=== PATIENT | female | born 1950 | race Caucasian/White ===

== ENCOUNTER 2020-07-02 17:17 | Inpatient (IN) | payer MEDICARE ==
[~2020-07-02] VITALS: Ht 165.1 cm; Wt 77.6 kg
[2020-07-02 17:48] LABS: BASOPHILS % (AUTO) 0.4 % (0.0-5.0); EOSINOPHILS % (AUTO) 0.1 % (0.0-8.0); HEMATOCRIT 49.1 % (42-54); LYMPHOCYTES % (AUTO) 9.4 % (21.0-51.0); MEAN CORPUSCULAR HEMOGLOBIN 29.2 pg (27.0-33.0); MEAN CORPUSCULAR HGB CONC 33.6 g/dL (32.0-36.0); MEAN CORPUSCULAR VOLUME 86.9 fL (79-99); MONOCYTES % (AUTO) 3.6 % (3.0-13.0); NEUTROPHILS % (AUTO) 85.8 % (40.0-77.0); PLATELET COUNT (AUTO) 207 K/uL (130-400); RED BLOOD CELL COUNT(AUTO) 5.65 MIL/uL (4.50-6.20); RED CELL DISTRIBUTION WIDTH 18.8 % (11.0-15.5); WHITE BLOOD COUNT (AUTO) 8.5 K/uL (4.8-10.8)
[2020-07-02] MEDS ORDERED: ALBUTEROL INHALER 90MCG/INH IH ONE (17:50)
[2020-07-02] MEDS ORDERED: AZITHROMYCIN 500MG+NS 250ML 250 ML IV ONE (17:51)
[2020-07-02] MEDS ORDERED: CEFTRIAXONE SODIUM 1 GM ONE (17:51)
[2020-07-02] MEDS ORDERED: DEXAMETHASONE SOD PHOSPHATE 10MG/ML 1ML VIAL ONE (17:51)
[2020-07-02] MEDS ORDERED: ERGOCALCIFEROL (VITAMIN D2) 50,000 UNIT CAPSULE PO ONE (18:00)
[2020-07-02] MEDS ORDERED: DOXYCYCLINE 100MG+NS 250ML IV SCH (18:00)
[2020-07-02 18:02] LABS: CREATININE 1.5 mg/dL (0.5-1.5); POTASSIUM 3.5 mmol/L (3.5-5.1)
[2020-07-02 18:07] LABS: ALBUMIN 3.1 g/dL (3.5-5.0); BILIRUBIN,TOTAL 0.8 mg/dL (0.2-1.0); TOTAL PROTEIN, SERUM 7.2 g/dL (6.0-8.3)
[2020-07-02 18:25] LABS: ABG BASE EXCESS -3.8 mmol/L (-2.0-3.0); ABG HCO3 18.3 mmol/L (21.0-28.0); ABG PCO2 26 mmHg (32-45)
[2020-07-02] MEDS ORDERED: DILTIAZEM HCL 5 MG/ML 5 ML VIAL IVP SCH (18:30)
[2020-07-02] MEDS ORDERED: DEXTROSE 50%-WATER 50 ML DISP.SYRIN IV PRN (19:00)
[2020-07-02] MEDS ORDERED: GLUCAGON 1MG KIT 1 MG ML IM PRN (19:00)
[2020-07-02] MEDS ORDERED: DILTIAZEM HCL 5 MG/ML 5 ML VIAL IVP ONE (22:20)
[2020-07-02] MEDS ORDERED: DOXYCYCLINE 100MG+NS 250ML 250 ML IV ONE (23:12)
[2020-07-03] MEDS ORDERED: INSULIN HUMULIN R 100 UNIT/ML 3ML ONE (00:09)
[2020-07-03 04:46] LABS: BASOPHILS % (AUTO) 0.2 % (0.0-5.0); MEAN CORPUSCULAR HEMOGLOBIN 28.9 pg (27.0-33.0); MEAN CORPUSCULAR VOLUME 87.7 fL (79-99); MONOCYTES % (AUTO) 2.3 % (3.0-13.0); NEUTROPHILS % (AUTO) 84.4 % (40.0-77.0); PLATELET COUNT (AUTO) 181 K/uL (130-400); RED BLOOD CELL COUNT(AUTO) 5.36 MIL/uL (4.00-5.50); RED CELL DISTRIBUTION WIDTH 18.4 % (11.0-15.5); WHITE BLOOD COUNT (AUTO) 4.8 K/uL (4.8-10.8)
[2020-07-03 05:12] LABS: ALBUMIN 2.6 g/dL (3.5-5.0); BILIRUBIN,TOTAL 0.4 mg/dL (0.2-1.0); CREATININE 1.4 mg/dL (0.5-1.5); POTASSIUM 4.3 mmol/L (3.5-5.1); TOTAL PROTEIN, SERUM 6.8 g/dL (6.0-8.3)
[2020-07-03 05:26] LABS: CRP QUANTITATIVE 214.4 mg/L (0.00-9.0)
[2020-07-03] MEDS: IPRATROPIUM 0.5 MG/2.5 ML INH IH SCH ×4 (06:00→18:00)
[2020-07-03] MEDS ORDERED: ASCORBIC ACID 500 MG TAB ONE (08:06)
[2020-07-03] MEDS ORDERED: ENOXAPARIN SODIUM 40 MG/0.4 ML SYRINGE SQ ONE (08:07)
[2020-07-03] MEDS ORDERED: ACETYLCYSTEINE 600 MG CAPSULE ONE (08:07)
[2020-07-03] MEDS ORDERED: ZINC SULFATE 220 CAPSULE ONE (08:07)
[2020-07-03] MEDS ORDERED: DOXYCYCLINE 100MG+NS 250ML 250 ML IV ONE (08:07)
[2020-07-03] MEDS: ZINC SULFATE 220 CAPSULE PO SCH (09:00)
[2020-07-03] MEDS: ASCORBIC ACID 500 MG TAB PO SCH (09:00)
[2020-07-03] MEDS ORDERED: ENOXAPARIN SODIUM 40 MG/0.4 ML SYRINGE SQ SCH (09:00)
[2020-07-03] MEDS ORDERED: PHARMACY COMMUNICATION MISC SCH (10:30)
[2020-07-03] MEDS ORDERED: ANAS5POW2 MC (11:47)
[2020-07-03] MEDS ORDERED: FENO145T26 PO (11:47)
[2020-07-03] MEDS ORDERED: IPRA0.2S54 IH (11:47)
[2020-07-03] MEDS ORDERED: MAGN400C PO (11:47)
[2020-07-03] MEDS ORDERED: CLOP75TA32 PO (11:47)
[2020-07-03] MEDS ORDERED: CALC0.253 PO (11:47)
[2020-07-03] MEDS ORDERED: LORA2ORA5 PO (11:47)
[2020-07-03] MEDS ORDERED: FLUT200B IH (11:47)
[2020-07-03] MEDS ORDERED: FOLI1TAB85 PO (11:47)
[2020-07-03] MEDS ORDERED: OMEG100014 PO (11:47)
[2020-07-03] MEDS ORDERED: ASPI-1197 PO (11:47)
[2020-07-03] MEDS ORDERED: FERR159T2 PO (11:47)
[2020-07-03] MEDS ORDERED: PANT40GR PO (11:47)
[2020-07-03] MEDS ORDERED: DILT240T13 PO (11:47)
[2020-07-03] MEDS ORDERED: CETI10CA5 PO (11:47)
[2020-07-03] MEDS ORDERED: FURO-152 PO (11:47)
[2020-07-03] MEDS ORDERED: CA C1TAB74 PO (11:47)
[2020-07-03] MEDS ORDERED: ATOR40TA69 PO (11:47)
[2020-07-03] MEDS ORDERED: ALBU10PO MC (11:47)
[2020-07-03] MEDS ORDERED: METO-391 PO (11:47)
[2020-07-03] MEDS ORDERED: METO-409 PO (11:47)
[2020-07-03] MEDS ORDERED: UBID200C18 PO (11:47)
[2020-07-03] MEDS ORDERED: AMIT25TA9 PO (11:47)
[2020-07-03] MEDS ORDERED: HYDR473S50 PO (11:47)
[2020-07-03] MEDS ORDERED: DILTIAZEM HCL 125 MG/25 ML 125 MG in SODIUM CHLORIDE 0.9% 100 ML IV PRN (12:00)
[2020-07-03] MEDS ORDERED: DILTIAZEM HCL 60 MG TABLET ONE ×2 (12:17→20:00)
[2020-07-03] MEDS ORDERED: METOPROLOL TARTRATE 25 MG TAB ONE ×2 (12:18→20:01)
[2020-07-03] MEDS ORDERED: COMPOUND IV REFRIGERATED 1 EACH IVSOLN MISC PRN (16:00)
[2020-07-03] MEDS ORDERED: REMDESIVIR (EUA) 520 200 MG in SODIUM CHLORIDE 0.9% 250 ML IV ONE (16:00)
[2020-07-03] MEDS: CEFTRIAXONE SODIUM 1 GM IVP SCH (18:00)
[2020-07-03] MEDS: DEXAMETHASONE SOD PHOSPHATE 4 MG/ML 1ML VIAL IVP SCH (18:00)
[2020-07-03] MEDS: DILTIAZEM HCL 60 MG TABLET PO SCH (20:00)
[2020-07-03] MEDS: ACETYLCYSTEINE 600 MG CAPSULE PO SCH (21:00)
[2020-07-03] MEDS: ENOXAPARIN SODIUM 30 MG/0.3 ML SQ SCH (21:00)
[2020-07-03] MEDS: DOXYCYCLINE 100MG+NS 250ML 250 ML IV SCH (21:00)
[2020-07-03] MEDS: METOPROLOL TARTRATE 25 MG TAB PO SCH (21:00)
[2020-07-03] MEDS: INSULIN HUMULIN R 100 UNIT/ML 3ML SQ SCH (21:00)
[2020-07-04 02:03] VITALS: BP 144/89
[2020-07-04] MEDS ORDERED: ACETAMINOPHEN 325 MG TAB PO ONE (02:30)
[2020-07-04] MEDS: DILTIAZEM HCL 60 MG TABLET PO SCH ×3 (03:09→20:27)
[2020-07-04 03:37] VITALS: BP 123/75
[2020-07-04] MEDS: CEFTRIAXONE SODIUM 1 GM IVP SCH ×2 (05:50→18:25)
[2020-07-04] MEDS: PHARMACY COMMUNICATION MISC SCH (06:00)
[2020-07-04] MEDS: IPRATROPIUM 0.5 MG/2.5 ML INH IH SCH ×4 (06:00→18:00)
[2020-07-04 06:17] LABS: BASOPHILS % (AUTO) 0.1 % (0.0-5.0); HEMATOCRIT 43.8 % (36-48); MEAN CORPUSCULAR HEMOGLOBIN 29.1 pg (27.0-33.0); MEAN CORPUSCULAR HGB CONC 33.3 g/dL (32.0-36.0); MEAN CORPUSCULAR VOLUME 87.3 fL (79-99); MONOCYTES % (AUTO) 2.9 % (3.0-13.0); PLATELET COUNT (AUTO) 226 K/uL (130-400); RED BLOOD CELL COUNT(AUTO) 5.02 MIL/uL (4.00-5.50); RED CELL DISTRIBUTION WIDTH 18.2 % (11.0-15.5)
[2020-07-04 06:30] LABS: ALBUMIN 2.7 g/dL (3.5-5.0); BILIRUBIN,TOTAL 0.4 mg/dL (0.2-1.0); CREATININE 1.2 mg/dL (0.5-1.5); CRP QUANTITATIVE 135.6 mg/L (0.00-9.0); POTASSIUM 4.3 mmol/L (3.5-5.1)
[2020-07-04] MEDS: INSULIN HUMULIN R 100 UNIT/ML 3ML SQ SCH ×3 (06:55→21:50)
[2020-07-04] MEDS: ASCORBIC ACID 500 MG TAB PO SCH (08:48)
[2020-07-04] MEDS: ACETYLCYSTEINE 600 MG CAPSULE PO SCH ×2 (08:48→20:28)
[2020-07-04] MEDS: METOPROLOL TARTRATE 25 MG TAB PO SCH ×2 (08:48→20:27)
[2020-07-04] MEDS: ZINC SULFATE 220 CAPSULE PO SCH (08:48)
[2020-07-04] MEDS: DOXYCYCLINE 100MG+NS 250ML 250 ML IV SCH ×2 (08:48→20:29)
[2020-07-04] MEDS: ENOXAPARIN SODIUM 30 MG/0.3 ML SQ SCH (08:49)
[2020-07-04 08:53] VITALS: BP 166/99
[2020-07-04 11:57] VITALS: BP 149/84
[2020-07-04 16:00] VITALS: BP 121/88
[2020-07-04] MEDS: REMDESIVIR (EUA) 520 100 MG in SODIUM CHLORIDE 0.9% 250 ML IV SCH (16:40)
[2020-07-04] MEDS: DEXAMETHASONE SOD PHOSPHATE 4 MG/ML 1ML VIAL IVP SCH (18:25)
[2020-07-04] MEDS ORDERED: HYDROCODONE/ACETAMINOPHEN 5/325 MG TAB PO PRN (18:45)
[2020-07-04 20:00] VITALS: BP 136/97
[2020-07-04] MEDS: ENOXAPARIN SODIUM 60 MG/0.6 ML SQ SCH (20:29)
[2020-07-04] MEDS: INSULIN GLARGINE 100 UNITS/ML 10 ML VIAL SQ SCH (21:51)
[2020-07-05] VITALS (7 sets, daily range): BP systolic 134–159; BP diastolic 60–99
[2020-07-05 04:01] LABS: ABG BASE EXCESS -2.4 mmol/L (-2.0-3.0); ABG HCO3 22.5 mmol/L (21.0-28.0); ABG OXYGEN SATURATION 94.2 % (95.0-99.0); ABG PCO2 40 mmHg (32-45)
[2020-07-05] MEDS: DILTIAZEM HCL 60 MG TABLET PO SCH ×3 (04:29→20:37)
[2020-07-05 05:56] LABS: BASOPHILS % (AUTO) 0.2 % (0.0-5.0); HEMATOCRIT 44.1 % (36-48); LYMPHOCYTES % (AUTO) 6.1 % (21.0-51.0); MEAN CORPUSCULAR HEMOGLOBIN 28.8 pg (27.0-33.0); MEAN CORPUSCULAR HGB CONC 32.4 g/dL (32.0-36.0); MEAN CORPUSCULAR VOLUME 88.7 fL (79-99); MONOCYTES % (AUTO) 2.1 % (3.0-13.0); NEUTROPHILS % (AUTO) 89.9 % (40.0-77.0); PLATELET COUNT (AUTO) 203 K/uL (130-400); RED BLOOD CELL COUNT(AUTO) 4.97 MIL/uL (4.00-5.50); RED CELL DISTRIBUTION WIDTH 18.6 % (11.0-15.5); WHITE BLOOD COUNT (AUTO) 10.3 K/uL (4.8-10.8)
[2020-07-05] MEDS: PHARMACY COMMUNICATION MISC SCH (06:00)
[2020-07-05] MEDS: IPRATROPIUM 0.5 MG/2.5 ML INH IH SCH ×4 (06:00→18:18)
[2020-07-05 06:12] LABS: HEMOGLOBIN A1C 7.1 % (4.0-6.0)
[2020-07-05] MEDS: CEFTRIAXONE SODIUM 1 GM IVP SCH ×2 (06:12→18:20)
[2020-07-05 06:31] LABS: ALBUMIN 2.6 g/dL (3.5-5.0); BILIRUBIN,TOTAL 0.4 mg/dL (0.2-1.0); CRP QUANTITATIVE 156.2 mg/L (0.00-9.0); POTASSIUM 4.4 mmol/L (3.5-5.1); TOTAL PROTEIN, SERUM 6.8 g/dL (6.0-8.3)
[2020-07-05] MEDS: INSULIN HUMULIN R 100 UNIT/ML 3ML SQ SCH ×7 (07:30→20:13)
[2020-07-05] MEDS: DEXAMETHASONE SOD PHOSPHATE 4 MG/ML 1ML VIAL IVP SCH ×3 (08:58→20:38)
[2020-07-05] MEDS: METOPROLOL TARTRATE 25 MG TAB PO SCH ×2 (08:58→20:37)
[2020-07-05] MEDS: ENOXAPARIN SODIUM 60 MG/0.6 ML SQ SCH ×2 (08:58→20:39)
[2020-07-05] MEDS: ZINC SULFATE 220 CAPSULE PO SCH (08:58)
[2020-07-05] MEDS: DOXYCYCLINE 100MG+NS 250ML 250 ML IV SCH ×2 (08:58→20:38)
[2020-07-05] MEDS: ASCORBIC ACID 500 MG TAB PO SCH (08:58)
[2020-07-05] MEDS: ACETYLCYSTEINE 600 MG CAPSULE PO SCH ×2 (08:58→20:37)
[2020-07-05] MEDS: REMDESIVIR (EUA) 520 100 MG in SODIUM CHLORIDE 0.9% 250 ML IV SCH (18:21)
[2020-07-05] MEDS: INSULIN GLARGINE 100 UNITS/ML 10 ML VIAL SQ SCH (20:53)
[2020-07-06 03:41] VITALS: BP 146/73
[2020-07-06] MEDS: DILTIAZEM HCL 60 MG TABLET PO SCH ×3 (04:06→20:50)
[2020-07-06 04:52] LABS: BASOPHILS % (AUTO) 0.3 % (0.0-5.0); HEMATOCRIT 43.9 % (36-48); LYMPHOCYTES % (AUTO) 5.9 % (21.0-51.0); MEAN CORPUSCULAR HEMOGLOBIN 29.1 pg (27.0-33.0); MEAN CORPUSCULAR HGB CONC 32.8 g/dL (32.0-36.0); MEAN CORPUSCULAR VOLUME 88.9 fL (79-99); NEUTROPHILS % (AUTO) 89.5 % (40.0-77.0); PLATELET COUNT (AUTO) 215 K/uL (130-400); RED BLOOD CELL COUNT(AUTO) 4.94 MIL/uL (4.00-5.50); RED CELL DISTRIBUTION WIDTH 18.3 % (11.0-15.5); WHITE BLOOD COUNT (AUTO) 12.8 K/uL (4.8-10.8)
[2020-07-06 05:11] LABS: ALBUMIN 2.5 g/dL (3.5-5.0); BILIRUBIN,TOTAL 0.4 mg/dL (0.2-1.0); CRP QUANTITATIVE 91.1 mg/L (0.00-9.0); POTASSIUM 4.3 mmol/L (3.5-5.1); TOTAL PROTEIN, SERUM 6.6 g/dL (6.0-8.3)
[2020-07-06] MEDS: CEFTRIAXONE SODIUM 1 GM IVP SCH ×2 (05:29→17:18)
[2020-07-06] MEDS: PHARMACY COMMUNICATION MISC SCH (05:30)
[2020-07-06] MEDS: IPRATROPIUM 0.5 MG/2.5 ML INH IH SCH ×4 (06:00→18:00)
[2020-07-06] MEDS: INSULIN HUMULIN R 100 UNIT/ML 3ML SQ SCH ×7 (06:40→20:25)
[2020-07-06 07:53] VITALS: BP 130/89
[2020-07-06] MEDS: ASCORBIC ACID 500 MG TAB PO SCH (08:28)
[2020-07-06] MEDS: ZINC SULFATE 220 CAPSULE PO SCH (08:28)
[2020-07-06] MEDS: ACETYLCYSTEINE 600 MG CAPSULE PO SCH ×2 (08:28→20:50)
[2020-07-06] MEDS: METOPROLOL TARTRATE 25 MG TAB PO SCH ×2 (08:28→23:51)
[2020-07-06] MEDS: DEXAMETHASONE SOD PHOSPHATE 4 MG/ML 1ML VIAL IVP SCH ×2 (08:29→20:50)
[2020-07-06] MEDS: DOXYCYCLINE 100MG+NS 250ML 250 ML IV SCH ×2 (08:29→20:55)
[2020-07-06] MEDS: ENOXAPARIN SODIUM 60 MG/0.6 ML SQ SCH ×2 (08:29→20:51)
[2020-07-06 11:19] VITALS: BP 159/84
[2020-07-06] MEDS: HYDROCODONE/ACETAMINOPHEN 5/325 MG TAB PO PRN (12:11)
[2020-07-06 15:40] VITALS: BP_SYST 110; BP_SYST 121; BP_DIAS 71; BP_DIAS 74
[2020-07-06] MEDS: REMDESIVIR (EUA) 520 100 MG in SODIUM CHLORIDE 0.9% 250 ML IV SCH (15:47)
[2020-07-06] MEDS ORDERED: FUROSEMIDE 10 MG/ML 2ML VIAL IV SCH (17:55)
[2020-07-06 19:00] VITALS: BP 138/94
[2020-07-06] MEDS: INSULIN GLARGINE 100 UNITS/ML 10 ML VIAL SQ SCH (20:53)
[2020-07-06 23:00] VITALS: BP 152/86
[2020-07-07 03:00] VITALS: BP 124/81
[2020-07-07 04:12] LABS: ABG BASE EXCESS -0.4 mmol/L (-2.0-3.0); ABG HCO3 24.9 mmol/L (21.0-28.0); ABG OXYGEN SATURATION 92.1 % (95.0-99.0); ABG PCO2 43 mmHg (32-45)
[2020-07-07] MEDS: DILTIAZEM HCL 60 MG TABLET PO SCH ×2 (04:15→12:30)
[2020-07-07 04:51] LABS: BASOPHILS % (AUTO) 0.2 % (0.0-5.0); EOSINOPHILS % (AUTO) 0.1 % (0.0-8.0); HEMATOCRIT 44.9 % (36-48); LYMPHOCYTES % (AUTO) 2.9 % (21.0-51.0); MEAN CORPUSCULAR HEMOGLOBIN 28.7 pg (27.0-33.0); MEAN CORPUSCULAR HGB CONC 32.7 g/dL (32.0-36.0); MEAN CORPUSCULAR VOLUME 87.5 fL (79-99); MONOCYTES % (AUTO) 2.1 % (3.0-13.0); NEUTROPHILS % (AUTO) 93.7 % (40.0-77.0); PLATELET COUNT (AUTO) 250 K/uL (130-400); RED BLOOD CELL COUNT(AUTO) 5.13 MIL/uL (4.00-5.50); RED CELL DISTRIBUTION WIDTH 17.9 % (11.0-15.5); WHITE BLOOD COUNT (AUTO) 16.6 K/uL (4.8-10.8)
[2020-07-07 05:05] LABS: ALBUMIN 2.4 g/dL (3.5-5.0); BILIRUBIN,TOTAL 0.5 mg/dL (0.2-1.0); CRP QUANTITATIVE 67.4 mg/L (0.00-9.0); POTASSIUM 3.9 mmol/L (3.5-5.1); TOTAL PROTEIN, SERUM 6.6 g/dL (6.0-8.3)
[2020-07-07] MEDS: PHARMACY COMMUNICATION MISC SCH (06:00)
[2020-07-07] MEDS: IPRATROPIUM 0.5 MG/2.5 ML INH IH SCH ×4 (06:00→18:00)
[2020-07-07] MEDS: CEFTRIAXONE SODIUM 1 GM IVP SCH ×2 (06:05→17:45)
[2020-07-07] MEDS: INSULIN HUMULIN R 100 UNIT/ML 3ML SQ SCH ×7 (06:06→21:00)
[2020-07-07 06:09] LABS: B-TYPE NATRIURETIC PEPTIDE 225 pg/mL (0-100)
[2020-07-07 08:00] VITALS: BP 110/89
[2020-07-07] MEDS: ACETYLCYSTEINE 600 MG CAPSULE PO SCH (09:16)
[2020-07-07] MEDS: ASCORBIC ACID 500 MG TAB PO SCH (09:16)
[2020-07-07] MEDS: DEXAMETHASONE SOD PHOSPHATE 4 MG/ML 1ML VIAL IVP SCH (09:17)
[2020-07-07] MEDS: ENOXAPARIN SODIUM 60 MG/0.6 ML SQ SCH (09:17)
[2020-07-07] MEDS: DOXYCYCLINE 100MG+NS 250ML 250 ML IV SCH (09:18)
[2020-07-07] MEDS: HYDROCODONE/ACETAMINOPHEN 5/325 MG TAB PO PRN (09:21)
[2020-07-07] MEDS: ZINC SULFATE 220 CAPSULE PO SCH (09:21)
[2020-07-07] MEDS: FAMOTIDINE/PF 20 MG/2 ML VIAL IV SCH (09:24)
[2020-07-07] MEDS: FUROSEMIDE 10 MG/ML 2ML VIAL IV SCH (09:27)
[2020-07-07] MEDS: METOPROLOL TARTRATE 25 MG TAB PO SCH ×2 (09:27→14:39)
[2020-07-07 12:00] VITALS: BP 139/85
[2020-07-07] MEDS: METOPROLOL TARTRATE 1 MG/ML 5ML VIAL IV PRN (13:25)
[2020-07-07] MEDS: REMDESIVIR (EUA) 520 100 MG in SODIUM CHLORIDE 0.9% 250 ML IV SCH (15:28)
[2020-07-07 16:00] VITALS: BP 144/86
[2020-07-07] MEDS: LUBIPROSTONE 24 MCG CAP PO SCH (17:45)
[2020-07-07 20:04] VITALS: BP 150/84
[2020-07-08] VITALS (7 sets, daily range): BP systolic 117–163; BP diastolic 67–86
[2020-07-08] MEDS: METOPROLOL TARTRATE 25 MG TAB PO SCH ×3 (00:20→14:45)
[2020-07-08] MEDS: ACETYLCYSTEINE 600 MG CAPSULE PO SCH ×3 (00:20→21:09)
[2020-07-08] MEDS: INSULIN GLARGINE 100 UNITS/ML 10 ML VIAL SQ SCH ×2 (00:22→21:19)
[2020-07-08] MEDS: ENOXAPARIN SODIUM 60 MG/0.6 ML SQ SCH ×2 (00:23→09:29)
[2020-07-08] MEDS: DILTIAZEM HCL 60 MG TABLET PO SCH ×4 (00:26→21:11)
[2020-07-08] MEDS: FAMOTIDINE/PF 20 MG/2 ML VIAL IV SCH ×3 (01:35→21:09)
[2020-07-08] MEDS: DEXAMETHASONE SOD PHOSPHATE 4 MG/ML 1ML VIAL IVP SCH ×3 (01:36→21:09)
[2020-07-08] MEDS: DOXYCYCLINE 100MG+NS 250ML 250 ML IV SCH ×3 (01:37→21:08)
[2020-07-08 05:44] LABS: BASOPHILS % (AUTO) 0.3 % (0.0-5.0); HEMATOCRIT 44.8 % (36-48); LYMPHOCYTES % (AUTO) 2.2 % (21.0-51.0); MEAN CORPUSCULAR HEMOGLOBIN 29.3 pg (27.0-33.0); MEAN CORPUSCULAR HGB CONC 33.7 g/dL (32.0-36.0); MEAN CORPUSCULAR VOLUME 86.8 fL (79-99); MONOCYTES % (AUTO) 1.8 % (3.0-13.0); NEUTROPHILS % (AUTO) 94.4 % (40.0-77.0); PLATELET COUNT (AUTO) 257 K/uL (130-400); RED BLOOD CELL COUNT(AUTO) 5.16 MIL/uL (4.00-5.50); RED CELL DISTRIBUTION WIDTH 17.6 % (11.0-15.5); WHITE BLOOD COUNT (AUTO) 18.7 K/uL (4.8-10.8)
[2020-07-08 06:32] LABS: ALBUMIN 2.5 g/dL (3.5-5.0); BILIRUBIN,TOTAL 0.6 mg/dL (0.2-1.0); CREATININE 0.8 mg/dL (0.5-1.5); CRP QUANTITATIVE 61.3 mg/L (0.00-9.0); POTASSIUM 3.8 mmol/L (3.5-5.1); TOTAL PROTEIN, SERUM 6.7 g/dL (6.0-8.3)
[2020-07-08] MEDS: CEFTRIAXONE SODIUM 1 GM IVP SCH ×2 (06:53→17:17)
[2020-07-08] MEDS: INSULIN HUMULIN R 100 UNIT/ML 3ML SQ SCH ×7 (07:30→21:00)
[2020-07-08] MEDS: FUROSEMIDE 10 MG/ML 2ML VIAL IV SCH (08:00)
[2020-07-08] MEDS: LUBIPROSTONE 24 MCG CAP PO SCH ×2 (08:00→17:00)
[2020-07-08] MEDS: ASCORBIC ACID 500 MG TAB PO SCH (09:29)
[2020-07-08] MEDS: ZINC SULFATE 220 CAPSULE PO SCH (09:29)
[2020-07-08] MEDS: IPRATROPIUM 0.5 MG/2.5 ML INH IH SCH ×2 (12:00→18:00)
[2020-07-08] MEDS: METOPROLOL TARTRATE 1 MG/ML 5ML VIAL IV PRN (12:59)
[2020-07-08] MEDS: METOPROLOL SUCCINATE 50 MG TAB.SR.24H PO SCH (21:09)
[2020-07-08] MEDS: ENOXAPARIN SODIUM 40 MG/0.4 ML SYRINGE SQ SCH (21:10)
[2020-07-09 03:09] VITALS: BP 146/96
[2020-07-09] MEDS: DILTIAZEM HCL 60 MG TABLET PO SCH ×3 (04:31→23:15)
[2020-07-09] MEDS: IPRATROPIUM 0.5 MG/2.5 ML INH IH SCH ×4 (06:00→18:00)
[2020-07-09] MEDS: INSULIN HUMULIN R 100 UNIT/ML 3ML SQ SCH ×7 (07:30→21:00)
[2020-07-09 07:48] LABS: BASOPHILS % (AUTO) 0.4 % (0.0-5.0); HEMATOCRIT 48.9 % (36-48); LYMPHOCYTES % (AUTO) 2.7 % (21.0-51.0); MEAN CORPUSCULAR HEMOGLOBIN 29.3 pg (27.0-33.0); MEAN CORPUSCULAR HGB CONC 33.1 g/dL (32.0-36.0); MEAN CORPUSCULAR VOLUME 88.6 fL (79-99); NEUTROPHILS % (AUTO) 92.5 % (40.0-77.0); PLATELET COUNT (AUTO) 207 K/uL (130-400); RED BLOOD CELL COUNT(AUTO) 5.52 MIL/uL (4.00-5.50); RED CELL DISTRIBUTION WIDTH 17.9 % (11.0-15.5); WHITE BLOOD COUNT (AUTO) 12.1 K/uL (4.8-10.8)
[2020-07-09] MEDS: FUROSEMIDE 10 MG/ML 2ML VIAL IV SCH (08:00)
[2020-07-09] MEDS: LUBIPROSTONE 24 MCG CAP PO SCH ×2 (08:00→16:05)
[2020-07-09 08:14] LABS: CREATININE 0.9 mg/dL (0.5-1.5); MAGNESIUM 1.7 mg/dL (1.80-2.40)
[2020-07-09 08:19] VITALS: BP 182/99
[2020-07-09] MEDS ORDERED: MAGNESIUM 2GM PREMIX 50ML 50 ML IV SCH (08:30)
[2020-07-09] MEDS: METOPROLOL SUCCINATE 50 MG TAB.SR.24H PO SCH ×2 (09:45→17:50)
[2020-07-09] MEDS: DEXAMETHASONE SOD PHOSPHATE 4 MG/ML 1ML VIAL IVP SCH ×2 (09:45→23:11)
[2020-07-09] MEDS: ASCORBIC ACID 500 MG TAB PO SCH (09:45)
[2020-07-09] MEDS: ZINC SULFATE 220 CAPSULE PO SCH (09:45)
[2020-07-09] MEDS: FAMOTIDINE/PF 20 MG/2 ML VIAL IV SCH ×2 (09:45→23:11)
[2020-07-09] MEDS: ENOXAPARIN SODIUM 40 MG/0.4 ML SYRINGE SQ SCH ×2 (09:46→23:12)
[2020-07-09 10:00] LABS: CRP QUANTITATIVE 43.7 mg/L (0.00-9.0)
[2020-07-09] MEDS: FUROSEMIDE 10 MG/ML 10ML VIAL IVP SCH (10:52)
[2020-07-09 12:11] VITALS: BP 132/45
[2020-07-09] MEDS ORDERED: DILTIAZEM HCL 5 MG/ML 5 ML VIAL IVP SCH (14:15)
[2020-07-09 16:06] VITALS: BP 146/69
[2020-07-09] MEDS ORDERED: DILTIAZEM HCL 5 MG/ML 10 ML VIAL IV SCH (16:45)
[2020-07-09] MEDS ORDERED: PHARMACY COMMUNICATION MISC SCH (18:00)
[2020-07-09 18:04] LABS: MAGNESIUM 1.8 mg/dL (1.80-2.40)
[2020-07-09] MEDS ORDERED: METOPROLOL SUCCINATE 50 MG TAB.SR.24H PO SCH (19:00)
[2020-07-09 19:59] VITALS: BP 145/80
[2020-07-09] MEDS ORDERED: IVERMECTIN 3 MG TAB PO SCH (20:00)
[2020-07-09] MEDS: INSULIN GLARGINE 100 UNITS/ML 10 ML VIAL SQ SCH (23:14)
[2020-07-09 23:57] VITALS: BP 138/74
[2020-07-10] MEDS ORDERED: TRAZODONE HCL 50 MG TAB PO ONE (00:45)
[2020-07-10 03:21] VITALS: BP 156/88
[2020-07-10] MEDS ORDERED: DILTIAZEM HCL 60 MG TABLET PO ONE (05:15)
[2020-07-10] MEDS ORDERED: DILTIAZEM HCL 60 MG TABLET ONE (05:26)
[2020-07-10] MEDS: IPRATROPIUM 0.5 MG/2.5 ML INH IH SCH ×4 (06:00→18:00)
[2020-07-10 06:34] LABS: BASOPHILS % (AUTO) 0.3 % (0.0-5.0); LYMPHOCYTES % (AUTO) 2.9 % (21.0-51.0); MEAN CORPUSCULAR HEMOGLOBIN 28.8 pg (27.0-33.0); MEAN CORPUSCULAR HGB CONC 33.2 g/dL (32.0-36.0); MEAN CORPUSCULAR VOLUME 86.7 fL (79-99); MONOCYTES % (AUTO) 2.1 % (3.0-13.0); NEUTROPHILS % (AUTO) 93.4 % (40.0-77.0); NUCLEATED RED BLOOD CELLS 0.1 % (0.0-0.19); PLATELET COUNT (AUTO) 302 K/uL (130-400); RED BLOOD CELL COUNT(AUTO) 5.77 MIL/uL (4.00-5.50); RED CELL DISTRIBUTION WIDTH 17.7 % (11.0-15.5); WHITE BLOOD COUNT (AUTO) 13.6 K/uL (4.8-10.8)
[2020-07-10] MEDS: INSULIN HUMULIN R 100 UNIT/ML 3ML SQ SCH ×7 (06:50→21:00)
[2020-07-10 07:01] LABS: ALANINE AMINOTRANSFERASE 61 U/L (12-78); ALBUMIN 2.4 g/dL (3.5-5.0); ASPARTATE AMINOTRANSFERASE 40 U/L (10-37); BILIRUBIN,TOTAL 0.9 mg/dL (0.2-1.0); CARBON DIOXIDE 30 mmol/L (21-32); CHLORIDE 104 mmol/L (101-111); GLOMERULAR FILTR. RATE CALC 58 mL/min (>60); GLUCOSE,RANDOM 173 mg/dL (70-105); POTASSIUM 4.5 mmol/L (3.5-5.1); SODIUM SERUM 142 mmol/L (136-145); TOTAL PROTEIN, SERUM 6.7 g/dL (6.0-8.3); UREA NITROGEN, BLOOD 53 mg/dL (7-18)
[2020-07-10 08:00] VITALS: BP 159/80
[2020-07-10] MEDS: LUBIPROSTONE 24 MCG CAP PO SCH ×2 (08:00→18:37)
[2020-07-10] MEDS: METOPROLOL SUCCINATE 50 MG TAB.SR.24H PO SCH ×2 (09:00→22:01)
[2020-07-10] MEDS: DEXAMETHASONE SOD PHOSPHATE 4 MG/ML 1ML VIAL IVP SCH ×2 (09:00→21:59)
[2020-07-10] MEDS: ASCORBIC ACID 500 MG TAB PO SCH (09:00)
[2020-07-10] MEDS: ZINC SULFATE 220 CAPSULE PO SCH (09:00)
[2020-07-10] MEDS ORDERED: DILTIAZEM HCL 180 MG CAP.SR.24H PO SCH (09:00)
[2020-07-10] MEDS: ENOXAPARIN SODIUM 40 MG/0.4 ML SYRINGE SQ SCH (09:00)
[2020-07-10] MEDS: FAMOTIDINE/PF 20 MG/2 ML VIAL IV SCH ×2 (09:00→22:01)
[2020-07-10] MEDS: FUROSEMIDE 10 MG/ML 10ML VIAL IVP SCH (09:15)
[2020-07-10 12:00] VITALS: BP 144/79
[2020-07-10 15:50] VITALS: BP 152/94
[2020-07-10] MEDS ORDERED: IVERMECTIN 3 MG TAB PO SCH (16:15)
[2020-07-10 19:20] VITALS: BP 149/90
[2020-07-10] MEDS: ENOXAPARIN SODIUM 80 MG/0.8 ML SQ SCH (22:01)
[2020-07-10] MEDS: INSULIN GLARGINE 100 UNITS/ML 10 ML VIAL SQ SCH (22:03)
[2020-07-10 23:10] VITALS: BP 164/92
[2020-07-11] VITALS (7 sets, daily range): BP systolic 128–162; BP diastolic 74–94
[2020-07-11] MEDS ORDERED: LABETALOL HCL 100 MG TABLET PO PRN (01:00)
[2020-07-11] MEDS ORDERED: LABETALOL 20 MG/4 ML DISP.SYRIN IV ONE (01:17)
[2020-07-11] MEDS: LABETALOL 20 MG/4 ML DISP.SYRIN IV PRN (04:58)
[2020-07-11 05:43] LABS: BASOPHILS % (AUTO) 0.2 % (0.0-5.0); HEMATOCRIT 48.4 % (36-48); LYMPHOCYTES % (AUTO) 3.6 % (21.0-51.0); MEAN CORPUSCULAR HGB CONC 33.5 g/dL (32.0-36.0); MEAN CORPUSCULAR VOLUME 86.7 fL (79-99); MONOCYTES % (AUTO) 2.2 % (3.0-13.0); NEUTROPHILS % (AUTO) 92.9 % (40.0-77.0); PLATELET COUNT (AUTO) 276 K/uL (130-400); RED BLOOD CELL COUNT(AUTO) 5.58 MIL/uL (4.00-5.50); RED CELL DISTRIBUTION WIDTH 17.9 % (11.0-15.5); WHITE BLOOD COUNT (AUTO) 11.1 K/uL (4.8-10.8)
[2020-07-11] MEDS: INSULIN HUMULIN R 100 UNIT/ML 3ML SQ SCH ×7 (05:50→21:00)
[2020-07-11 06:00] LABS: CREATININE 0.9 mg/dL (0.5-1.5); CRP QUANTITATIVE 28.4 mg/L (0.00-9.0); POTASSIUM 4.2 mmol/L (3.5-5.1)
[2020-07-11] MEDS: IPRATROPIUM 0.5 MG/2.5 ML INH IH SCH ×4 (06:00→18:00)
[2020-07-11] MEDS: DEXAMETHASONE SOD PHOSPHATE 4 MG/ML 1ML VIAL IVP SCH ×2 (08:16→23:19)
[2020-07-11] MEDS: FAMOTIDINE/PF 20 MG/2 ML VIAL IV SCH ×2 (08:16→23:23)
[2020-07-11] MEDS: ENOXAPARIN SODIUM 80 MG/0.8 ML SQ SCH ×2 (08:17→23:23)
[2020-07-11] MEDS: ZINC SULFATE 220 CAPSULE PO SCH (08:22)
[2020-07-11] MEDS: ASCORBIC ACID 500 MG TAB PO SCH (08:22)
[2020-07-11] MEDS: METOPROLOL SUCCINATE 50 MG TAB.SR.24H PO SCH ×2 (08:22→23:19)
[2020-07-11] MEDS: LUBIPROSTONE 24 MCG CAP PO SCH ×2 (08:23→17:00)
[2020-07-11] MEDS: FUROSEMIDE 10 MG/ML 10ML VIAL IVP SCH (09:15)
[2020-07-11] MEDS: DILTIAZEM HCL 120 MG CAP.SR.24H PO SCH (09:52)
[2020-07-11] MEDS: INSULIN GLARGINE 100 UNITS/ML 10 ML VIAL SQ SCH (23:34)
[2020-07-12] VITALS (7 sets, daily range): BP systolic 107–164; BP diastolic 54–105
[2020-07-12] MEDS: METOPROLOL SUCCINATE 50 MG TAB.SR.24H PO SCH ×2 (00:06→10:05)
[2020-07-12] MEDS: LABETALOL 20 MG/4 ML DISP.SYRIN IV PRN (04:56)
[2020-07-12] MEDS: IPRATROPIUM 0.5 MG/2.5 ML INH IH SCH ×4 (06:00→18:00)
[2020-07-12 06:01] LABS: BASOPHILS % (AUTO) 0.2 % (0.0-5.0); HEMATOCRIT 52.9 % (36-48); MEAN CORPUSCULAR HEMOGLOBIN 28.5 pg (27.0-33.0); MEAN CORPUSCULAR HGB CONC 32.5 g/dL (32.0-36.0); MEAN CORPUSCULAR VOLUME 87.7 fL (79-99); MONOCYTES % (AUTO) 2.3 % (3.0-13.0); NEUTROPHILS % (AUTO) 93.2 % (40.0-77.0); PLATELET COUNT (AUTO) 247 K/uL (130-400); RED BLOOD CELL COUNT(AUTO) 6.03 MIL/uL (4.00-5.50); RED CELL DISTRIBUTION WIDTH 17.8 % (11.0-15.5); WHITE BLOOD COUNT (AUTO) 10.1 K/uL (4.8-10.8)
[2020-07-12 06:27] LABS: CARBON DIOXIDE 29 mmol/L (21-32); CHLORIDE 106 mmol/L (101-111); POTASSIUM 4.6 mmol/L (3.5-5.1); SODIUM SERUM 145 mmol/L (136-145)
[2020-07-12 06:43] LABS: ALANINE AMINOTRANSFERASE 81 U/L (12-78); ALBUMIN 2.4 g/dL (3.5-5.0); ASPARTATE AMINOTRANSFERASE 49 U/L (10-37); BILIRUBIN,DIRECT 0.2 mg/dL (0.0-0.3); BILIRUBIN,TOTAL 0.8 mg/dL (0.2-1.0); CREATININE 0.8 mg/dL (0.5-1.5); GLOMERULAR FILTR. RATE CALC 75 mL/min (>60); GLUCOSE,RANDOM 177 mg/dL (70-105); TOTAL PROTEIN, SERUM 6.4 g/dL (6.0-8.3); UREA NITROGEN, BLOOD 56 mg/dL (7-18)
[2020-07-12] MEDS: INSULIN HUMULIN R 100 UNIT/ML 3ML SQ SCH ×6 (07:30→20:43)
[2020-07-12] MEDS: FUROSEMIDE 10 MG/ML 10ML VIAL IVP SCH (08:00)
[2020-07-12] MEDS: LUBIPROSTONE 24 MCG CAP PO SCH ×2 (08:00→17:00)
[2020-07-12] MEDS: ASCORBIC ACID 500 MG TAB PO SCH (10:04)
[2020-07-12] MEDS: ZINC SULFATE 220 CAPSULE PO SCH (10:06)
[2020-07-12] MEDS: ENOXAPARIN SODIUM 80 MG/0.8 ML SQ SCH ×2 (10:06→20:39)
[2020-07-12] MEDS: FAMOTIDINE/PF 20 MG/2 ML VIAL IV SCH ×2 (10:06→20:32)
[2020-07-12] MEDS: DILTIAZEM HCL 120 MG CAP.SR.24H PO SCH (10:06)
[2020-07-12] MEDS: KETOROLAC TROMETHAMINE 15MG/ML IV SCH (12:19)
[2020-07-12] MEDS ORDERED: IVERMECTIN 3 MG TAB PO SCH (16:45)
[2020-07-12] MEDS: INSULIN GLARGINE 100 UNITS/ML 10 ML VIAL SQ SCH (20:40)
[2020-07-13 02:30] VITALS: BP 107/67
[2020-07-13 05:25] LABS: BASOPHILS % (AUTO) 0.2 % (0.0-5.0); EOSINOPHILS % (AUTO) 0.2 % (0.0-8.0); LYMPHOCYTES % (AUTO) 4.2 % (21.0-51.0); MEAN CORPUSCULAR HEMOGLOBIN 29.2 pg (27.0-33.0); MEAN CORPUSCULAR HGB CONC 32.5 g/dL (32.0-36.0); MEAN CORPUSCULAR VOLUME 89.8 fL (79-99); MONOCYTES % (AUTO) 1.8 % (3.0-13.0); NEUTROPHILS % (AUTO) 92.5 % (40.0-77.0); PLATELET COUNT (AUTO) 252 K/uL (130-400); RED BLOOD CELL COUNT(AUTO) 5.79 MIL/uL (4.00-5.50); RED CELL DISTRIBUTION WIDTH 17.5 % (11.0-15.5); WHITE BLOOD COUNT (AUTO) 14.9 K/uL (4.8-10.8)
[2020-07-13 05:37] LABS: CARBON DIOXIDE 30 mmol/L (21-32); CHLORIDE 101 mmol/L (101-111); GLOMERULAR FILTR. RATE CALC 58 mL/min (>60); GLUCOSE,RANDOM 196 mg/dL (70-105); POTASSIUM 4.9 mmol/L (3.5-5.1); SODIUM SERUM 140 mmol/L (136-145); UREA NITROGEN, BLOOD 56 mg/dL (7-18)
[2020-07-13] MEDS: IPRATROPIUM 0.5 MG/2.5 ML INH IH SCH ×5 (06:00→21:08)
[2020-07-13] MEDS: INSULIN HUMULIN R 100 UNIT/ML 3ML SQ SCH ×7 (07:30→21:00)
[2020-07-13 08:00] VITALS: BP 127/89
[2020-07-13] MEDS: METOPROLOL SUCCINATE 50 MG TAB.SR.24H PO SCH ×2 (08:50→21:08)
[2020-07-13] MEDS: DILTIAZEM HCL 120 MG CAP.SR.24H PO SCH (08:50)
[2020-07-13] MEDS: ZINC SULFATE 220 CAPSULE PO SCH (08:50)
[2020-07-13] MEDS: ENOXAPARIN SODIUM 80 MG/0.8 ML SQ SCH ×2 (08:51→21:08)
[2020-07-13] MEDS: LUBIPROSTONE 24 MCG CAP PO SCH ×2 (08:51→15:42)
[2020-07-13] MEDS: DEXAMETHASONE SOD PHOSPHATE 4 MG/ML 1ML VIAL IV SCH (08:52)
[2020-07-13] MEDS: ASCORBIC ACID 500 MG TAB PO SCH (08:52)
[2020-07-13] MEDS: CEFTRIAXONE SODIUM 1 GM IVP SCH ×2 (08:52→21:08)
[2020-07-13] MEDS: FAMOTIDINE/PF 20 MG/2 ML VIAL IV SCH ×2 (08:52→21:08)
[2020-07-13] MEDS: TRAMADOL HCL 50 MG TABLET PO PRN (09:03)
[2020-07-13 11:50] VITALS: BP 124/79
[2020-07-13] MEDS: KETOROLAC TROMETHAMINE 15MG/ML IV SCH (12:44)
[2020-07-13 16:00] VITALS: BP 126/75
[2020-07-13] MEDS ORDERED: IVERMECTIN 3 MG TAB PO SCH (19:00)
[2020-07-13 19:33] VITALS: BP 122/79
[2020-07-13] MEDS: INSULIN GLARGINE 100 UNITS/ML 10 ML VIAL SQ SCH (21:16)
[2020-07-13 23:02] VITALS: BP 121/74
[2020-07-14 03:24] VITALS: BP 134/95
[2020-07-14] MEDS: IPRATROPIUM 0.5 MG/2.5 ML INH IH SCH ×3 (06:00→16:49)
[2020-07-14 06:21] LABS: BASOPHILS % (AUTO) 0.4 % (0.0-5.0); HEMATOCRIT 52.3 % (36-48); LYMPHOCYTES % (AUTO) 3.8 % (21.0-51.0); MEAN CORPUSCULAR HEMOGLOBIN 29.3 pg (27.0-33.0); MEAN CORPUSCULAR HGB CONC 33.3 g/dL (32.0-36.0); MONOCYTES % (AUTO) 2.3 % (3.0-13.0); NEUTROPHILS % (AUTO) 92.4 % (40.0-77.0); PLATELET COUNT (AUTO) 214 K/uL (130-400); RED BLOOD CELL COUNT(AUTO) 5.94 MIL/uL (4.00-5.50); RED CELL DISTRIBUTION WIDTH 17.5 % (11.0-15.5); WHITE BLOOD COUNT (AUTO) 13.3 K/uL (4.8-10.8)
[2020-07-14] MEDS: INSULIN HUMULIN R 100 UNIT/ML 3ML SQ SCH ×7 (06:21→21:00)
[2020-07-14 06:48] LABS: ALBUMIN 2.3 g/dL (3.5-5.0); BILIRUBIN,DIRECT 0.2 mg/dL (0.0-0.3); BILIRUBIN,TOTAL 0.6 mg/dL (0.2-1.0); CREATININE 0.8 mg/dL (0.5-1.5); CRP QUANTITATIVE 11.8 mg/L (0.00-9.0); POTASSIUM 4.4 mmol/L (3.5-5.1); TOTAL PROTEIN, SERUM 6.1 g/dL (6.0-8.3)
[2020-07-14 07:00] VITALS: BP 136/77
[2020-07-14] MEDS: LUBIPROSTONE 24 MCG CAP PO SCH (08:49)
[2020-07-14] MEDS: FAMOTIDINE/PF 20 MG/2 ML VIAL IV SCH ×2 (08:50→21:20)
[2020-07-14] MEDS: METOPROLOL SUCCINATE 50 MG TAB.SR.24H PO SCH ×2 (08:50→21:21)
[2020-07-14] MEDS: DILTIAZEM HCL 120 MG CAP.SR.24H PO SCH (08:50)
[2020-07-14] MEDS: CEFTRIAXONE SODIUM 1 GM IVP SCH ×2 (08:50→21:20)
[2020-07-14] MEDS: ASCORBIC ACID 500 MG TAB PO SCH (08:50)
[2020-07-14] MEDS: ZINC SULFATE 220 CAPSULE PO SCH (08:50)
[2020-07-14] MEDS: ENOXAPARIN SODIUM 80 MG/0.8 ML SQ SCH ×2 (08:54→21:22)
[2020-07-14] MEDS: DEXAMETHASONE SOD PHOSPHATE 4 MG/ML 1ML VIAL IV SCH (09:41)
[2020-07-14 10:30] VITALS: BP 142/66
[2020-07-14] MEDS: KETOROLAC TROMETHAMINE 15MG/ML IV SCH (11:46)
[2020-07-14 15:35] VITALS: BP 155/92
[2020-07-14 20:00] VITALS: BP 164/74
[2020-07-14] MEDS: INSULIN GLARGINE 100 UNITS/ML 10 ML VIAL SQ SCH (21:30)
[2020-07-15] VITALS (7 sets, daily range): BP systolic 123–150; BP diastolic 57–98
[2020-07-15] MEDS: IPRATROPIUM 0.5 MG/2.5 ML INH IH SCH
[2020-07-15] MEDS: TRAMADOL HCL 50 MG TABLET PO PRN ×2 (00:14→22:53)
[2020-07-15 06:11] LABS: BASOPHILS % (AUTO) 0.3 % (0.0-5.0); HEMATOCRIT 50.5 % (36-48); LYMPHOCYTES % (AUTO) 2.3 % (21.0-51.0); MEAN CORPUSCULAR HEMOGLOBIN 29.5 pg (27.0-33.0); MEAN CORPUSCULAR HGB CONC 32.9 g/dL (32.0-36.0); MEAN CORPUSCULAR VOLUME 89.7 fL (79-99); MONOCYTES % (AUTO) 2.8 % (3.0-13.0); NEUTROPHILS % (AUTO) 93.1 % (40.0-77.0); PLATELET COUNT (AUTO) 188 K/uL (130-400); RED BLOOD CELL COUNT(AUTO) 5.63 MIL/uL (4.00-5.50); RED CELL DISTRIBUTION WIDTH 16.9 % (11.0-15.5); WHITE BLOOD COUNT (AUTO) 22.3 K/uL (4.8-10.8)
[2020-07-15] MEDS: INSULIN HUMULIN R 100 UNIT/ML 3ML SQ SCH ×7 (06:13→22:15)
[2020-07-15 06:18] LABS: CREATININE 0.7 mg/dL (0.5-1.5); CRP QUANTITATIVE 7.8 mg/L (0.00-9.0); POTASSIUM 4.4 mmol/L (3.5-5.1)
[2020-07-15 07:38] LABS: ALANINE AMINOTRANSFERASE 141 U/L (12-78); ALBUMIN 2.3 g/dL (3.5-5.0); ASPARTATE AMINOTRANSFERASE 39 U/L (10-37); BILIRUBIN,DIRECT 0.1 mg/dL (0.0-0.3); BILIRUBIN,TOTAL 0.4 mg/dL (0.2-1.0); TOTAL PROTEIN, SERUM 5.8 g/dL (6.0-8.3)
[2020-07-15] MEDS: LUBIPROSTONE 24 MCG CAP PO SCH ×3 (08:00→13:33)
[2020-07-15] MEDS: FAMOTIDINE/PF 20 MG/2 ML VIAL IV SCH ×2 (09:45→21:35)
[2020-07-15] MEDS: ZINC SULFATE 220 CAPSULE PO SCH (09:45)
[2020-07-15] MEDS: ASCORBIC ACID 500 MG TAB PO SCH (09:46)
[2020-07-15] MEDS: METOPROLOL SUCCINATE 50 MG TAB.SR.24H PO SCH ×2 (09:46→21:35)
[2020-07-15] MEDS: DILTIAZEM HCL 120 MG CAP.SR.24H PO SCH (09:46)
[2020-07-15] MEDS: DEXAMETHASONE SOD PHOSPHATE 4 MG/ML 1ML VIAL IV SCH (09:46)
[2020-07-15] MEDS: CEFTRIAXONE SODIUM 1 GM IVP SCH ×2 (09:46→21:35)
[2020-07-15] MEDS: ENOXAPARIN SODIUM 80 MG/0.8 ML SQ SCH ×2 (10:54→21:36)
[2020-07-15] MEDS: KETOROLAC TROMETHAMINE 15MG/ML IV SCH (12:15)
[2020-07-15] MEDS: FLUCONAZOLE 100 MG TAB PO SCH (16:53)
[2020-07-15] MEDS: CLOTRIMAZOLE 10 MG TROCHE MM SCH ×2 (16:53→21:35)
[2020-07-15] MEDS: INSULIN GLARGINE 100 UNITS/ML 10 ML VIAL SQ SCH (22:15)
[2020-07-16] MEDS: CLOTRIMAZOLE 10 MG TROCHE MM SCH ×3 (02:00→11:46)
[2020-07-16 04:00] VITALS: BP 158/88
[2020-07-16 06:07] LABS: BASOPHILS % (AUTO) 0.3 % (0.0-5.0); HEMATOCRIT 46.4 % (36-48); LYMPHOCYTES % (AUTO) 1.9 % (21.0-51.0); MEAN CORPUSCULAR HEMOGLOBIN 29.2 pg (27.0-33.0); MEAN CORPUSCULAR HGB CONC 33.2 g/dL (32.0-36.0); MONOCYTES % (AUTO) 2.3 % (3.0-13.0); NEUTROPHILS % (AUTO) 93.1 % (40.0-77.0); PLATELET COUNT (AUTO) 216 K/uL (130-400); RED BLOOD CELL COUNT(AUTO) 5.27 MIL/uL (4.00-5.50); RED CELL DISTRIBUTION WIDTH 16.5 % (11.0-15.5); WHITE BLOOD COUNT (AUTO) 22.5 K/uL (4.8-10.8)
[2020-07-16] MEDS: INSULIN HUMULIN R 100 UNIT/ML 3ML SQ SCH ×6 (06:22→16:36)
[2020-07-16 06:34] LABS: ALBUMIN 2.4 g/dL (3.5-5.0); BILIRUBIN,DIRECT 0.1 mg/dL (0.0-0.3); BILIRUBIN,TOTAL 0.3 mg/dL (0.2-1.0); CREATININE 0.9 mg/dL (0.5-1.5); CRP QUANTITATIVE 11.7 mg/L (0.00-9.0); POTASSIUM 4.3 mmol/L (3.5-5.1); TOTAL PROTEIN, SERUM 5.9 g/dL (6.0-8.3)
[2020-07-16 07:42] VITALS: BP 147/76
[2020-07-16] MEDS: ZINC SULFATE 220 CAPSULE PO SCH (09:30)
[2020-07-16] MEDS: ASCORBIC ACID 500 MG TAB PO SCH (09:30)
[2020-07-16] MEDS: DEXAMETHASONE SOD PHOSPHATE 4 MG/ML 1ML VIAL IV SCH (09:30)
[2020-07-16] MEDS: METOPROLOL SUCCINATE 50 MG TAB.SR.24H PO SCH (09:30)
[2020-07-16] MEDS: CEFTRIAXONE SODIUM 1 GM IVP SCH (09:30)
[2020-07-16] MEDS: FAMOTIDINE/PF 20 MG/2 ML VIAL IV SCH (09:31)
[2020-07-16] MEDS: LUBIPROSTONE 24 MCG CAP PO SCH ×2 (09:31→16:17)
[2020-07-16] MEDS: DILTIAZEM HCL 120 MG CAP.SR.24H PO SCH (09:31)
[2020-07-16] MEDS: ENOXAPARIN SODIUM 80 MG/0.8 ML SQ SCH (09:32)
[2020-07-16] MEDS: KETOROLAC TROMETHAMINE 15MG/ML IV SCH (11:30)
[2020-07-16 11:36] VITALS: BP 139/58
[2020-07-16] MEDS: FLUCONAZOLE 100 MG TAB PO SCH (14:19)
[2020-07-16 16:00] VITALS: BP 119/72
[2020-07-16 19:54] VITALS: BP 129/89
[2020-07-17] MEDS ORDERED: ASPIRIN 81MG TAB.CHEW PO SCH (09:00)
[2020-07-17] MEDS ORDERED: CLOPIDOGREL BISULFATE 75 MG TAB PO SCH (09:00)
== END 2020-07-16 20:50 | DRG 177 ==
LOC: EDSEX 17:17 → EDH 17:17 → EDHIP 17:18 → 2AH 07-04 00:47 → 2DH 07-13 04:31
PROVIDERS: ADMIT Hospitalist; ATTEND Hospitalist
PROC: 5A0935A Assistance with Respiratory Ventilation, Less than 24 Consecutive Hours, High Flow/Velocity Cannula (ICD-10-PCS; 2020-07-02)
PROC: XW033E5 Introduction of Remdesivir Anti-infective into Peripheral Vein, Percutaneous Approach, New Technology Group 5 (ICD-10-PCS; principal; 2020-07-03)
PROC: XW13325 Transfusion of Convalescent Plasma (Nonautologous) into Peripheral Vein, Percutaneous Approach, New Technology Group 5 (ICD-10-PCS; 2020-07-03)
PROC: 5A0935A Assistance with Respiratory Ventilation, Less than 24 Consecutive Hours, High Flow/Velocity Cannula (ICD-10-PCS; 2020-07-04)
PROC: 5A09357 Assistance with Respiratory Ventilation, Less than 24 Consecutive Hours, Continuous Positive Airway Pressure (ICD-10-PCS; 2020-07-04)
PROC: 5A0935A Assistance with Respiratory Ventilation, Less than 24 Consecutive Hours, High Flow/Velocity Cannula (ICD-10-PCS; 2020-07-05)
PROC: 5A09357 Assistance with Respiratory Ventilation, Less than 24 Consecutive Hours, Continuous Positive Airway Pressure (ICD-10-PCS; 2020-07-05)
PROC: 5A0935A Assistance with Respiratory Ventilation, Less than 24 Consecutive Hours, High Flow/Velocity Cannula (ICD-10-PCS; 2020-07-06)
PROC: 5A09357 Assistance with Respiratory Ventilation, Less than 24 Consecutive Hours, Continuous Positive Airway Pressure (ICD-10-PCS; 2020-07-06)
PROC: 5A0935A Assistance with Respiratory Ventilation, Less than 24 Consecutive Hours, High Flow/Velocity Cannula (ICD-10-PCS; 2020-07-07)
PROC: 5A09357 Assistance with Respiratory Ventilation, Less than 24 Consecutive Hours, Continuous Positive Airway Pressure (ICD-10-PCS; 2020-07-07)
PROC: 5A0935A Assistance with Respiratory Ventilation, Less than 24 Consecutive Hours, High Flow/Velocity Cannula (ICD-10-PCS; 2020-07-08)
PROC: 5A09357 Assistance with Respiratory Ventilation, Less than 24 Consecutive Hours, Continuous Positive Airway Pressure (ICD-10-PCS; 2020-07-08)
PROC: 5A0935A Assistance with Respiratory Ventilation, Less than 24 Consecutive Hours, High Flow/Velocity Cannula (ICD-10-PCS; 2020-07-09)
PROC: 5A09357 Assistance with Respiratory Ventilation, Less than 24 Consecutive Hours, Continuous Positive Airway Pressure (ICD-10-PCS; 2020-07-09)
PROC: 5A0935A Assistance with Respiratory Ventilation, Less than 24 Consecutive Hours, High Flow/Velocity Cannula (ICD-10-PCS; 2020-07-10)
PROC: 5A09457 Assistance with Respiratory Ventilation, 24-96 Consecutive Hours, Continuous Positive Airway Pressure (ICD-10-PCS; 2020-07-10)
PROC: 5A0935A Assistance with Respiratory Ventilation, Less than 24 Consecutive Hours, High Flow/Velocity Cannula (ICD-10-PCS; 2020-07-12)
PROC: 5A0935A Assistance with Respiratory Ventilation, Less than 24 Consecutive Hours, High Flow/Velocity Cannula (ICD-10-PCS; 2020-07-13)
PROC: 5A0935A Assistance with Respiratory Ventilation, Less than 24 Consecutive Hours, High Flow/Velocity Cannula (ICD-10-PCS; 2020-07-14)
PROC: 5A0935A Assistance with Respiratory Ventilation, Less than 24 Consecutive Hours, High Flow/Velocity Cannula (ICD-10-PCS; 2020-07-15)
PROC: 5A09357 Assistance with Respiratory Ventilation, Less than 24 Consecutive Hours, Continuous Positive Airway Pressure (ICD-10-PCS; 2020-07-15)
PROC: 5A0935A Assistance with Respiratory Ventilation, Less than 24 Consecutive Hours, High Flow/Velocity Cannula (ICD-10-PCS; 2020-07-16)
PROC: 5A09357 Assistance with Respiratory Ventilation, Less than 24 Consecutive Hours, Continuous Positive Airway Pressure (ICD-10-PCS; 2020-07-16)
DX: U07.1 COVID-19 (principal); I50.33 Acute on chronic diastolic (congestive) heart failure; J12.82 Pneumonia due to coronavirus disease 2019; J96.21 Acute and chronic respiratory failure with hypoxia; J44.0 Chronic obstructive pulmonary disease with (acute) lower respiratory infection; I48.19 Other persistent atrial fibrillation; E44.0 Moderate protein-calorie malnutrition; B37.0 Candidal stomatitis; J44.1 Chronic obstructive pulmonary disease with (acute) exacerbation; D68.69 Other thrombophilia; M54.9 Dorsalgia, unspecified; E66.9 Obesity, unspecified; R53.81 Other malaise; G89.29 Other chronic pain; I11.0 Hypertensive heart disease with heart failure; E11.65 Type 2 diabetes mellitus with hyperglycemia; K59.04 Chronic idiopathic constipation; Z68.28 Body mass index [BMI] 28.0-28.9, adult; Z88.8 Allergy status to other drugs, medicaments and biological substances; Z83.3 Family history of diabetes mellitus; Z85.3 Personal history of malignant neoplasm of breast; Z87.891 Personal history of nicotine dependence; Z90.12 Acquired absence of left breast and nipple; Z91.19 Patient's noncompliance with other medical treatment and regimen; Z99.81 Dependence on supplemental oxygen
CPT/HCPCS: 36415; 36600; 70450; 71045; 76705; 80048; 80053; 80076; 82435; 82550; 82728; 82803; 82947; 82948; 83036; 83605; 83615; 83735; 83880; 84132; 84145; 84295; 84484; 85018; 85025; 85378; 86140; 86850; 86900; 86901; 86927; 87040; 87426; 93005; 94660; 97039; G0378; J0456; J0696; J1100; J1650; J1815; J1885; J1940; J3490; J7050